=== PATIENT | male | born 1930 ===

== ENCOUNTER 2022-02-09 12:52 | Emergency (ER) | payer MEDICARE, OTHER ==
[~2022-02-09] VITALS: Ht 177.8 cm; Wt 65.8 kg
[2022-02-09 16:00] VITALS: BP 128/61
== END 2022-02-09 16:42 | disposition home or self-care (01) ==
LOC: ER 12:52
DX: S63.641A Sprain of metacarpophalangeal joint of right thumb, initial encounter (principal); S00.83XA Contusion of other part of head, initial encounter; S60.011A Contusion of right thumb without damage to nail, initial encounter; W18.39XA Other fall on same level, initial encounter; Y93.89 Activity, other specified; Y92.098 Other place in other non-institutional residence as the place of occurrence of the external cause; Y99.8 Other external cause status
CPT/HCPCS: 70450; 73130; 93005